=== PATIENT | female | born 1970 | race Caucasian/White ===

== ENCOUNTER 2020-10-14 13:20 | Day surgery (SDC) | payer BC ==
[2020-10-14] MEDS ORDERED: BUPIVACAINE 0.5% VIAL IJ ONE (13:21)
[2020-10-14] MEDS ORDERED: Depo-Medrol 40 MG/ML IM ONE (13:21)
[2020-10-14] MEDS ORDERED: Lactated Ringers 1,000 ML IV ONE (13:33)
[2020-10-14] MEDS ORDERED: DIPRIVAN 200 MG/20 ML IV ONE (14:49)
--- NOTE | 2020-10-14 16:29 | XRAY ---
Indication: Bilateral hip injections. Intraoperative fluoroscopy provided for 32 seconds. 2 digital spot images submitted for interpretation demonstrates needle tip lateral to the left and right femur necks. Small amount of contrast injected for both needle tip placement. Correlate with intraoperative findings/report.
--- NOTE | 2020-10-14 16:50 | XRAY ---
32 seconds fluoroscopy time in surgery for bilateral intra-articular hip injections.
== END 2020-10-14 15:20 | disposition home or self-care (01) ==
LOC: SDC-PAIN 13:20
PROVIDERS: ATTEND Psychiatry & Neurology Pain Medicine
DX: M16.12 Unilateral primary osteoarthritis, left hip (principal); M16.11 Unilateral primary osteoarthritis, right hip; I10 Essential (primary) hypertension; K21.9 Gastro-esophageal reflux disease without esophagitis; F41.9 Anxiety disorder, unspecified; F32.9 Major depressive disorder, single episode, unspecified; E16.2 Hypoglycemia, unspecified; E78.5 Hyperlipidemia, unspecified; Z79.899 Other long term (current) drug therapy
CPT/HCPCS: 20610; 73521; 77002; J1030; J2704; Q9966

== ENCOUNTER 2021-10-20 12:50 | Day surgery (SDC) | payer BC ==
[2021-10-20] MEDS ORDERED: Marcaine Mpf 0.5% Vial 30 Ml IJ ONE (12:51)
[2021-10-20] MEDS ORDERED: Depo-Medrol 40 MG/ML IM ONE (12:51)
[2021-10-20] MEDS ORDERED: DIPRIVAN 200 MG/20 ML IV ONE (14:28)
[2021-10-20] MEDS ORDERED: Lactated Ringers 1,000 ML IV ONE (14:52)
--- NOTE | 2021-10-20 17:10 | XRAY ---
Indication: Bilateral hip injection. Intraoperative fluoroscopy provided for 37 seconds. 2 digital spot images submitted for interpretation demonstrate needle tip projecting lateral to the left and right femur necks. Small amount of contrast injected for needle tip placement. Correlate with intraoperative findings/report.
--- NOTE | 2021-10-20 17:15 | XRAY ---
37 seconds of fluoroscopy was used in surgery for bilateral hips intra-articular injections.
== END 2021-10-20 14:53 | disposition home or self-care (01) ==
LOC: SDC-PAIN 12:50
PROVIDERS: ATTEND Psychiatry & Neurology Pain Medicine
DX: M16.0 Bilateral primary osteoarthritis of hip (principal); Z79.899 Other long term (current) drug therapy
CPT/HCPCS: 20610; 73521; 77002; J1030; J2704; Q9966

== ENCOUNTER 2021-12-22 11:09 | Day surgery (SDC) | payer BC ==
[2021-12-22] MEDS ORDERED: LIDOCAINE HCL 2% 100 MG/5 ML IJ ONE (11:10)
[2021-12-22] MEDS ORDERED: DIPRIVAN 200 MG/20 ML IV ONE (13:14)
[2021-12-22] MEDS ORDERED: Xylocaine-Mpf 2% 5 Ml Vial ONE (13:16)
[2021-12-22] MEDS ORDERED: Lactated Ringers 1,000 ML IV ONE (13:59)
--- NOTE | 2021-12-22 14:35 | XRAY ---
Indication: Bilateral L4-S1 MBB. Intraoperative fluoroscopy provided for 11 seconds. Single digital spot image submitted for interpretation demonstrates posterior needle tips projecting over the expected left and right L4-S1 nerve roots. Correlate with intraoperative findings/report.
--- NOTE | 2021-12-22 14:56 | XRAY ---
11 seconds of fluoroscopy was used in surgery for a bilateral L4-S1 MBB.
== END 2021-12-22 13:40 | disposition home or self-care (01) ==
LOC: SDC-PAIN 11:09
PROVIDERS: ATTEND Psychiatry & Neurology Pain Medicine
DX: M47.816 Spondylosis without myelopathy or radiculopathy, lumbar region (principal); Z79.899 Other long term (current) drug therapy
CPT/HCPCS: 64493; 64494; 72020; 77002; J2704

== ENCOUNTER 2022-02-09 11:58 | Day surgery (SDC) | payer BC ==
[2022-02-09] MEDS ORDERED: BUPIVACAINE 0.5% VIAL IJ ONE (11:59)
[2022-02-09] MEDS ORDERED: DIPRIVAN 200 MG/20 ML IV ONE (14:53)
[2022-02-09] MEDS ORDERED: Lactated Ringers 1,000 ML IV ONE (15:49)
--- NOTE | 2022-02-09 16:43 | XRAY ---
Indication: Bilateral L4-S1 MBB. Intraoperative fluoroscopy provided for 7 seconds. Single digital spot image submitted for interpretation demonstrates posterior needle tips projecting over the expected left and right L4-S1 nerve roots. Correlate with intraoperative findings/report.
--- NOTE | 2022-02-09 16:58 | XRAY ---
7 seconds fluoroscopy time in surgery for bilateral L4-S1 MBB.
== END 2022-02-09 15:23 | disposition home or self-care (01) ==
LOC: SDC-PAIN 11:58
PROVIDERS: ATTEND Psychiatry & Neurology Pain Medicine
DX: M47.816 Spondylosis without myelopathy or radiculopathy, lumbar region (principal); Z79.899 Other long term (current) drug therapy
CPT/HCPCS: 64493; 64494; 72020; 77002; J2704

== ENCOUNTER 2022-03-31 10:53 | Day surgery (SDC) | payer BC ==
[2022-03-31] MEDS ORDERED: LIDOCAINE HCL 1% 50 MG/5 ML VL PF IJ ONE (10:54)
[2022-03-31] MEDS ORDERED: Depo-Medrol 40 MG/ML IM ONE (10:54)
[2022-03-31] MEDS ORDERED: BUPIVACAINE 0.5% VIAL IJ ONE (10:54)
[2022-03-31] MEDS ORDERED: DIPRIVAN 200 MG/20 ML IV ONE (12:39)
[2022-03-31] MEDS ORDERED: Lactated Ringers 1,000 ML IV ONE (13:30)
--- NOTE | 2022-03-31 13:32 | XRAY ---
Indication: Right L4-S1 RFA. Intraoperative fluoroscopy provided for 22 seconds. 2 digital spot image submitted for interpretation demonstrates posterior needle tips projecting over the expected right L4-S1 nerve roots. Correlate with intraoperative findings/report.
--- NOTE | 2022-03-31 13:40 | XRAY ---
22 seconds fluoroscopy time in surgery for right L4-S1 RFA.
== END 2022-03-31 13:10 | disposition home or self-care (01) ==
LOC: SDC-PAIN 10:53
PROVIDERS: ATTEND Psychiatry & Neurology Pain Medicine
DX: M47.816 Spondylosis without myelopathy or radiculopathy, lumbar region (principal); Z79.899 Other long term (current) drug therapy
CPT/HCPCS: 64635; 64636; 72100; 77002; J1030; J2001; J2704

== ENCOUNTER 2022-04-06 12:01 | Day surgery (SDC) | payer BC ==
[2022-04-06] MEDS ORDERED: LIDOCAINE HCL 1% 50 MG/5 ML VL PF IJ ONE (12:02)
[2022-04-06] MEDS ORDERED: BUPIVACAINE 0.5% VIAL IJ ONE (12:02)
[2022-04-06] MEDS ORDERED: Depo-Medrol 40 MG/ML IM ONE (12:02)
[2022-04-06] MEDS ORDERED: Versed 2 MG/2 ML Injection ONE (12:09)
[2022-04-06] MEDS ORDERED: Lactated Ringers 1,000 ML IV ONE (12:54)
[2022-04-06] MEDS ORDERED: DIPRIVAN 200 MG/20 ML IV ONE (12:56)
--- NOTE | 2022-04-06 14:47 | XRAY ---
Indication: Left L4-S1 RFA. Intraoperative fluoroscopy provided for 28 seconds. 4 digital spot image submitted for interpretation demonstrates posterior needle tips projecting over the expected left L4-S1 nerve roots. Correlate with intraoperative findings/report.
--- NOTE | 2022-04-06 14:50 | XRAY ---
28 seconds of fluoroscopy was used in surgery for a left L4-S1 RFA.
== END 2022-04-06 13:40 | disposition home or self-care (01) ==
LOC: SDC-PAIN 12:01
PROVIDERS: ATTEND Psychiatry & Neurology Pain Medicine
DX: M47.816 Spondylosis without myelopathy or radiculopathy, lumbar region (principal); Z79.899 Other long term (current) drug therapy
CPT/HCPCS: 64635; 64636; 72100; 77002; J1030; J2001; J2250; J2704

== ENCOUNTER 2022-07-06 10:30 | Day surgery (SDC) | payer BC ==
[2022-07-06] MEDS ORDERED: BUPIVACAINE 0.5% VIAL IJ ONE (10:31)
[2022-07-06] MEDS ORDERED: Depo-Medrol 40 MG/ML IM ONE (10:31)
[2022-07-06] MEDS ORDERED: DIPRIVAN 200 MG/20 ML IV ONE ×2 (12:02→12:11)
--- NOTE | 2022-07-06 13:45 | XRAY ---
Indication: Bilateral hip injection. Intraoperative fluoroscopy provided for 30 seconds. 2 digital spot image submitted for interpretation demonstrates needle tip projecting lateral to the left and right femur neck. Small amount of contrast injected for both needle tip placement. Correlate with intraoperative findings/report.
[2022-07-06] MEDS ORDERED: Lactated Ringers 1,000 ML IV ONE (14:25)
--- NOTE | 2022-07-06 14:45 | XRAY ---
30 seconds of fluoroscopy was used in surgery for a bilateral intra-articular hip injection.
== END 2022-07-06 12:40 | disposition home or self-care (01) ==
LOC: SDC-PAIN 10:30
PROVIDERS: ATTEND Psychiatry & Neurology Pain Medicine
DX: M16.0 Bilateral primary osteoarthritis of hip (principal); Z79.899 Other long term (current) drug therapy
CPT/HCPCS: 20610; 73521; 77002; J1030; J2704; Q9966

== ENCOUNTER 2022-09-14 10:17 | Day surgery (SDC) | payer BC ==
[2022-09-14] MEDS ORDERED: BUPIVACAINE 0.5% VIAL IJ ONE (10:18)
[2022-09-14] MEDS ORDERED: Depo-Medrol 40 MG/ML IM ONE (10:18)
[2022-09-14] MEDS ORDERED: DIPRIVAN 200 MG/20 ML IV ONE (12:20)
--- NOTE | 2022-09-14 12:48 | XRAY ---
Indication: Bilateral SI joint injection. Intraoperative fluoroscopy provided for 13 seconds. 4 digital spot image submitted for interpretation demonstrates posterior needle tip projecting over the left and right SI joint. Correlate with intraoperative findings/report.
--- NOTE | 2022-09-14 14:11 | XRAY ---
13 seconds of fluoroscopy was used in surgery for a bilateral sacroiliac joint injection.
[2022-09-14] MEDS ORDERED: Lactated Ringers 1,000 ML IV ONE (15:19)
== END 2022-09-14 12:50 | disposition home or self-care (01) ==
LOC: SDC-PAIN 10:17
PROVIDERS: ATTEND Psychiatry & Neurology Pain Medicine
DX: M46.1 Sacroiliitis, not elsewhere classified (principal); E11.9 Type 2 diabetes mellitus without complications; Z79.899 Other long term (current) drug therapy
CPT/HCPCS: 27096; 72202; 77002; 82947; J1030; J2704; G0260

== ENCOUNTER 2023-03-22 09:30 | Day surgery (SDC) | payer BC ==
[2023-03-22] MEDS ORDERED: Depo-Medrol 40 MG/ML IM ONE (09:31)
[2023-03-22] MEDS ORDERED: BUPIVACAINE 0.5% VIAL IJ ONE (09:31)
[2023-03-22] MEDS ORDERED: TORAdol 30 mg Injection ONE (11:00)
[2023-03-22] MEDS ORDERED: DIPRIVAN 200 MG/20 ML IV ONE (11:45)
[2023-03-22] MEDS ORDERED: Versed 2 MG/2 ML Injection ONE (11:48)
--- NOTE | 2023-03-22 14:07 | XRAY ---
Indication: Bilateral hip injection. Intraoperative fluoroscopy provided for 27 seconds. 2 digital spot images submitted for interpretation demonstrates needle tip projecting lateral to the left/right femur necks. Small amount of contrast injected for both needle tip placement.. Correlate with intraoperative findings/report.
[2023-03-22] MEDS ORDERED: Lactated Ringers 1,000 ML IV ONE (14:59)
--- NOTE | 2023-03-22 15:06 | XRAY ---
27 seconds of fluoroscopy was used in surgery for a bilateral intra-articular hip injection.
== END 2023-03-22 12:24 | disposition home or self-care (01) ==
LOC: SDC-PAIN 09:30
PROVIDERS: ATTEND Psychiatry & Neurology Pain Medicine
DX: M16.0 Bilateral primary osteoarthritis of hip (principal); E11.9 Type 2 diabetes mellitus without complications; Z79.899 Other long term (current) drug therapy
CPT/HCPCS: 20610; 73521; 77002; 82947; J1030; J1885; J2250; J2704; Q9966

== ENCOUNTER 2023-07-26 11:32 | Day surgery (SDC) | payer BC ==
[2023-07-26] MEDS ORDERED: BUPIVACAINE 0.5% VIAL IJ ONE (11:33)
[2023-07-26] MEDS ORDERED: LIDOCAINE HCL 1% 50 MG/5 ML VL PF IJ ONE (11:33)
[2023-07-26] MEDS ORDERED: Depo-Medrol 40 MG/ML IM ONE (11:33)
[2023-07-26] MEDS ORDERED: Pepcid 20 MG VIAL IV ONE (11:55)
[2023-07-26] MEDS ORDERED: Reglan 10 MG/2 ML ONE (11:55)
[2023-07-26] MEDS ORDERED: DIPRIVAN 200 MG/20 ML IV ONE (13:34)
[2023-07-26] MEDS ORDERED: Lactated Ringers 2,000 ML IV ONE (14:17)
--- NOTE | 2023-07-26 14:56 | XRAY ---
Indication: Right L4-S1 RFA Intraoperative fluoroscopy provided for 25 seconds. 5 digital spot image submitted for interpretation demonstrates posterior needle tips projecting over the expected right L4-S1 nerve roots. Correlate with intraoperative findings/report.
--- NOTE | 2023-07-26 15:17 | XRAY ---
25 seconds of fluoroscopy was used in surgery for a right L4-S1 RFA.
== END 2023-07-26 14:07 | disposition home or self-care (01) ==
LOC: SDC-PAIN 11:32
PROVIDERS: ATTEND Psychiatry & Neurology Pain Medicine
DX: M47.816 Spondylosis without myelopathy or radiculopathy, lumbar region (principal)
CPT/HCPCS: 64635; 64636; 72100; 77002; J1010; J2001; J2704; J1030

== ENCOUNTER 2023-08-02 11:46 | Day surgery (SDC) | payer BC ==
[2023-08-02] MEDS ORDERED: LIDOCAINE HCL 1% 50 MG/5 ML VL PF IJ ONE (11:47)
[2023-08-02] MEDS ORDERED: Depo-Medrol 40 MG/ML IM ONE (11:47)
[2023-08-02] MEDS ORDERED: BUPIVACAINE 0.5% VIAL IJ ONE (11:47)
[2023-08-02] MEDS ORDERED: BENADRYL 50 MG/ML ONE (12:42)
[2023-08-02] MEDS ORDERED: Zofran 4 MG/2 ML VIAL ONE (12:42)
[2023-08-02] MEDS ORDERED: DIPRIVAN 200 MG/20 ML IV ONE (13:58)
[2023-08-02] MEDS ORDERED: Lactated Ringers 1,000 ML IV ONE (14:06)
--- NOTE | 2023-08-02 15:12 | XRAY ---
Indication: Left L4-S1 RFA. Intraoperative fluoroscopy provided for 26 seconds. 3 digital spot image submitted for interpretation demonstrates posterior needle tips projecting over the expected left L4-S1 nerve roots. Correlate with intraoperative findings/report.
--- NOTE | 2023-08-02 15:16 | XRAY ---
26 seconds of fluoroscopy was used in surgery for a left L4-S1 RFA.
== END 2023-08-02 14:35 | disposition home or self-care (01) ==
LOC: SDC-PAIN 11:46
PROVIDERS: ATTEND Psychiatry & Neurology Pain Medicine
DX: M47.816 Spondylosis without myelopathy or radiculopathy, lumbar region (principal)
CPT/HCPCS: 64635; 64636; 72100; 77002; J1010; J1200; J2001; J2405; J2704

== ENCOUNTER 2023-09-27 08:20 | Day surgery (SDC) | payer BC ==
[2023-09-27] MEDS ORDERED: BUPIVACAINE 0.5% VIAL IJ ONE (08:21)
[2023-09-27] MEDS ORDERED: Depo-Medrol 40 MG/ML IM ONE (08:21)
[2023-09-27] MEDS ORDERED: DIPRIVAN 200 MG/20 ML IV ONE (09:56)
--- NOTE | 2023-09-27 11:35 | XRAY ---
Indication: Right shoulder and subacromial bursa injection. Intraoperative fluoroscopy provided for 10 seconds. 2 digital spot image submitted for interpretation demonstrates needle tip projecting over the right glenohumeral joint superiorly. Second needle tip subacromial. Small amount of contrast injected for needle tip placement. Correlate with intraoperative findings/report.
--- NOTE | 2023-09-27 13:15 | XRAY ---
10 seconds of fluoroscopy was used in surgery for a right intra-articular shoulder and subacromial bursa injection.
[2023-09-27] MEDS ORDERED: Lactated Ringers 1,000 ML IV ONE (15:02)
== END 2023-09-27 10:16 | disposition home or self-care (01) ==
LOC: SDC-PAIN 08:20
PROVIDERS: ATTEND Psychiatry & Neurology Pain Medicine
DX: M19.011 Primary osteoarthritis, right shoulder (principal); R73.03 Prediabetes
CPT/HCPCS: 20610; 73030; 77002; 82947; J1010; J2704; Q9966

== ENCOUNTER 2024-02-07 09:10 | Day surgery (SDC) | payer BC ==
[2024-02-07] MEDS ORDERED: Sodium Chloride 0.9(Preservative Free) 10 ML IJ ONE (09:11)
[2024-02-07] MEDS ORDERED: LIDOCAINE HCL 1% AMPUL 5 ML IJ ONE (09:11)
[2024-02-07] MEDS ORDERED: Depo-Medrol 40 MG/ML IM ONE (09:11)
[2024-02-07] MEDS ORDERED: DIPRIVAN 200 MG/20 ML IV ONE (11:02)
--- NOTE | 2024-02-07 12:21 | XRAY ---
Indication: Lumbar STEPHANY. Intraoperative fluoroscopy provided for 16 seconds. 3 digital spot image submitted for interpretation demonstrates posterior needle tip projecting posterior to L4-L5 interspace. Small amount of contrast injected for needle tip placement. Correlate with intraoperative findings/report.
--- NOTE | 2024-02-07 12:36 | XRAY ---
16 seconds of fluoroscopy was used in surgery for a lumbar STEPHANY.
== END 2024-02-07 11:26 | disposition home or self-care (01) ==
LOC: SDC-PAIN 09:10
PROVIDERS: ATTEND Psychiatry & Neurology Pain Medicine
DX: M54.16 Radiculopathy, lumbar region (principal); R73.03 Prediabetes
CPT/HCPCS: 62323; 72100; 77003; 82947; J2704; Q9966

== ENCOUNTER 2024-06-05 14:50 | Day surgery (SDC) | payer BC ==
[2024-06-05] MEDS ORDERED: LIDOCAINE HCL 1% AMPUL 5 ML IJ ONE (14:51)
[2024-06-05] MEDS ORDERED: methylPREDNISolone acetate IM ONE (14:51)
[2024-06-05] MEDS ORDERED: BUPIVACAINE 0.5% VIAL IJ ONE (14:51)
--- NOTE | 2024-06-05 17:06 | XRAY ---
Indication: Bilateral SI joint injection. Intraoperative fluoroscopy provided for 18 seconds. 3 digital spot image submitted for interpretation demonstrates posterior needle tips projecting over left and right SI joints. Small amount of contrast injected for needle tip placement. Correlate with intraoperative findings/report.
--- NOTE | 2024-06-05 17:09 | XRAY ---
18 seconds of fluoroscopy was used in surgery for a bilateral sacroiliac joint injection.
== END 2024-06-05 17:05 ==
LOC: SDC-PAIN 14:50
PROVIDERS: ATTEND Psychiatry & Neurology Pain Medicine
DX: M46.1 Sacroiliitis, not elsewhere classified (principal); E11.9 Type 2 diabetes mellitus without complications
CPT/HCPCS: 27096; 72202; 77002; 82947; J1010; Q9966

== ENCOUNTER 2025-03-27 09:25 | Day surgery (SDC) | payer BC ==
[2025-03-27] MEDS ORDERED: methylPREDNISolone acetate IM ONE (09:26)
[2025-03-27] MEDS ORDERED: BUPIVACAINE 0.5% VIAL IJ ONE (09:26)
[2025-03-27] MEDS ORDERED: LIDOCAINE HCL 1% 50 MG/5 ML VL IJ ONE (09:26)
[2025-03-27] MEDS ORDERED: propofoL IV ONE (12:00)
[2025-03-27] MEDS ORDERED: Lactated Ringers 1,000 ML IV ONE (12:46)
--- NOTE | 2025-03-27 13:52 | XRAY ---
Indication: Left L4-S1 RFA. Intraoperative fluoroscopy provided for 16 seconds. 4 digital spot image submitted for interpretation demonstrates posterior needle tips projecting over expected left L4-S1 nerve roots. Correlate with intraoperative findings/report.
--- NOTE | 2025-03-27 14:06 | XRAY ---
16 seconds of fluoroscopy was used in surgery for a left L4-S1 RFA.
== END 2025-03-27 12:30 | disposition home or self-care (01) ==
LOC: SDC-PAIN 09:25
PROVIDERS: ATTEND Psychiatry & Neurology Pain Medicine
DX: M47.817 Spondylosis without myelopathy or radiculopathy, lumbosacral region (principal); E11.9 Type 2 diabetes mellitus without complications